=== PATIENT | female | born 1980 | race Caucasian/White ===

== ENCOUNTER 2022-11-15 13:00 | Emergency (ER) | payer MEDICAID ==
[~2022-11-15] VITALS: Ht 167.6 cm; Wt 57.0 kg
[2022-11-15] MEDS ORDERED: LORAZEPAM 1MG TABLET PO ONE (14:00)
[2022-11-15 14:04] VITALS: BP 146/62
[2022-11-15 14:11] LABS: CLARITY URINE CLOUDY (CLEAR); COLOR URINE YELLOW (YELLOW); KETONES URINE NEGATIVE (NEGATIVE); LEUKOCYTE ESTERASE URINE NEGATIVE (NEGATIVE); NITRITE URINE NEGATIVE (NEGATIVE); OCCULT BLOOD URINE NEGATIVE (NEGATIVE); PROTEIN URINE NEGATIVE (NEGATIVE); UROBILINOGEN URINE 0.2 E.U./dL (0.2-1.0)
[2022-11-15 14:41] LABS: *AMPHETAMINES SCREEN URINE NEGATIVE (NEGATIVE); *BARBITURATES SCREEN URINE NEGATIVE (NEGATIVE); *BENZODIAZEPINES SCREEN URINE NEGATIVE (NEGATIVE); *COCAINE SCREEN URINE NEGATIVE (NEGATIVE); CANNABINOID URINE SCREEN NEGATIVE (NEGATIVE); METHADONE URINE SCREEN NEGATIVE (NEGATIVE); OPIATES URINE SCREEN NEGATIVE (NEGATIVE); PHENCYCLIDINE URINE SCREEN NEGATIVE (NEGATIVE)
== END 2022-11-15 16:00 | disposition home or self-care (01) ==
LOC: ER 13:00
DX: R45.851 Suicidal ideations (principal); Z98.890 Other specified postprocedural states; Z88.6 Allergy status to analgesic agent; Z88.8 Allergy status to other drugs, medicaments and biological substances; Z88.9 Allergy status to unspecified drugs, medicaments and biological substances
CPT/HCPCS: 80305; 81003; 81025; 99283

== ENCOUNTER 2022-11-15 17:36 | Emergency (ER) | payer MEDICAID ==
[~2022-11-15] VITALS: Ht 167.6 cm; Wt 57.0 kg
[2022-11-15 18:38] LABS: BASOPHILS % 0.3 % (0.0-2.0); EOSINOPHILS % 2.2 % (0.0-5.0); HEMATOCRIT. 30.6 % (36.0-48.0); HEMOGLOBIN. 10.5 g/dL (12.0-16.0); LYMPHOCYTES % 16.6 % (20.0-50.0); MEAN CORPUSCULAR HEMOGLOBIN 30.8 pg (28.0-32.0); MEAN CORPUSCULAR VOLUME 89.5 fL (81.0-99.0); MONOCYTES % 7.3 % (2.0-8.0); NEUTROPHILS % 73.6 % (40.0-76.0); PLATELET 349 x1000/uL (130-400); RED BLOOD CELL COUNT 3.42 mill/uL (4.2-5.4); RED CELL DISTRIBUTION WIDTH 13.5 % (11.6-14.6)
[2022-11-15] MEDS ORDERED: LORAZEPAM 1MG TABLET PO ONE (18:45)
[2022-11-15 18:49] LABS: CHLORIDE 109 mEq/L (98-107)
[2022-11-15 18:56] LABS: ETHANOL BLOOD < 10 mg/dL
[2022-11-15 20:19] LABS: CLARITY URINE CLEAR (CLEAR); COLOR URINE YELLOW (YELLOW); KETONES URINE NEGATIVE (NEGATIVE); LEUKOCYTE ESTERASE URINE NEGATIVE (NEGATIVE); NITRITE URINE NEGATIVE (NEGATIVE); OCCULT BLOOD URINE NEGATIVE (NEGATIVE); PROTEIN URINE NEGATIVE (NEGATIVE); SPECIFIC GRAVITY URINE 1.008 (1.005-1.030); UROBILINOGEN URINE 0.2 E.U./dL (0.2-1.0)
[2022-11-15 20:28] LABS: *AMPHETAMINES SCREEN URINE NEGATIVE (NEGATIVE); *BARBITURATES SCREEN URINE NEGATIVE (NEGATIVE); *BENZODIAZEPINES SCREEN URINE NEGATIVE (NEGATIVE); *COCAINE SCREEN URINE NEGATIVE (NEGATIVE); CANNABINOID URINE SCREEN NEGATIVE (NEGATIVE); METHADONE URINE SCREEN NEGATIVE (NEGATIVE); OPIATES URINE SCREEN NEGATIVE (NEGATIVE); PHENCYCLIDINE URINE SCREEN NEGATIVE (NEGATIVE)
[2022-11-15] MEDS: TRAZODONE HCL 50MG TABLET PO SCH (21:45)
[2022-11-16] MEDS ORDERED: LORAZEPAM 1MG TABLET PO ONE ×2 (01:45→09:30)
[2022-11-16] MEDS ORDERED: LORAZEPAM 0.5MG TABLET PO ONE (04:30)
[2022-11-16] MEDS ORDERED: CITALOPRAM HYDROBROMIDE 10MG TABLET PO SCH (10:45)
[2022-11-16] MEDS ORDERED: OLANZAPINE 5MG TABLET PO SCH (10:45)
[2022-11-16] MEDS: LORAZEPAM 1MG TABLET PO PRN (18:46)
[2022-11-16] MEDS ORDERED: OLANZAPINE 10MG TABLET PO SCH (21:00)
[2022-11-16] MEDS: TRAZODONE HCL 50MG TABLET PO SCH ×2 (21:00→21:15)
[2022-11-17] MEDS: LORAZEPAM 1MG TABLET PO PRN (00:46)
[2022-11-17 06:00] VITALS: BP 117/79
== END 2022-11-17 06:29 ==
LOC: ER 17:36
DX: F33.9 Major depressive disorder, recurrent, unspecified (principal); R45.851 Suicidal ideations; F44.81 Dissociative identity disorder; Z63.0 Problems in relationship with spouse or partner; Z56.0 Unemployment, unspecified; F43.10 Post-traumatic stress disorder, unspecified; D64.9 Anemia, unspecified; F15.10 Other stimulant abuse, uncomplicated; F11.10 Opioid abuse, uncomplicated; Z20.822 Contact with and (suspected) exposure to COVID-19; Z91.51 Personal history of suicidal behavior; Z88.8 Allergy status to other drugs, medicaments and biological substances
CPT/HCPCS: 36415; 80053; 80305; 80307; 80320; 80329; 81003; 85025; 86850; 86900; 86901; 87426; 99285; C9803; G0480